=== PATIENT | female | born 1950 | race Caucasian/White ===

== ENCOUNTER 2018-11-05 10:41 | Outpatient (CLI) | payer MEDICARE ==
--- NOTE | 2018-11-05 13:09 | RAD ---
RIGHT HIP TWO VIEWS: HISTORY: A 68-year-old female with a history of right hip pain when lying on left side. Fall several months a go. FINDINGS: Degenerative and arthrosis changes of the right hip joint. No acute fracture or dislocation. IMPRESSION: Degenerative change without fracture or dislocation. POS: OFF
== END 2018-11-05 10:42 | disposition home or self-care (01) ==
LOC: BICRAD 10:41
PROVIDERS: ATTEND General Practice
DX: M25.551 Pain in right hip (principal); M16.11 Unilateral primary osteoarthritis, right hip

== ENCOUNTER 2019-07-07 09:33 | Outpatient (CLI) | payer MEDICARE ==
--- NOTE | 2019-07-07 10:30 | MMO ---
Bilateral MAMMO Bilat Screen [facility]. CLINICAL HISTORY: Patient is 68 years old and is seen for screening. The patient has no family history of breast cancer. The patient has no personal history of cancer. The patient has a history of left Excisional Biopsy in OVER 20 YRS AGO - benign and right Ultrasound Guided Core Biopsy in OVER 20 YRS AGO - benign. VIEWS: The views performed were: bilateral craniocaudal with tomosynthesis and bilateral mediolateral oblique with tomosynthesis. MAMMOGRAM FINDINGS: There are scattered fibroglandular densities. There are benign appearing calcifications seen in both breasts. There are no suspicious masses, suspicious calcifications, or new areas of architectural distortion. IMPRESSION: THERE IS NO MAMMOGRAPHIC EVIDENCE OF MALIGNANCY. A ROUTINE FOLLOW-UP MAMMOGRAM IN 1 YEAR IS RECOMMENDED. THE RESULTS OF THIS EXAM WERE SENT TO THE PATIENT. ACR BI-RADS Category 2 - Benign finding MAMMOGRAPHY NOTE: 1. A negative mammogram report should not delay a biopsy if a dominant of clinically suspicious mass is present. 2. Approximately 10% to 15% of breast cancers are not detected by mammography. 3. Adenosis and dense breasts may obscure an underlying neoplasm. Reported by: TRISTON WEINSTEIN MD Electonically Signed: [id number]
--- NOTE | 2019-07-07 10:50 | BD ---
EXAM: DEXA bone density examination HISTORY: 68-year-old postmenopausal female for screening COMPARISON: None FINDINGS: L1--bone mineral density 0.943 g/sq cm; T score -0.4 L2--bone mineral density 1.018 g/sq cm; T score -0.1 L3--bone mineral density 1.068 g/sq cm; T score -0.1 L4--bone mineral density 1.081 g/sq cm; T score 0.2 Total L1-L4--bone mineral density 1.031 g/sq cm; T score -0.1 Left femoral neck--bone mineral density0.838; T score -0.1 Total proximal left femur--bone mineral density 0.976; T score 0.3 IMPRESSION: Normal bone mineral density
== END 2019-07-07 09:34 | disposition home or self-care (01) ==
LOC: BICMAMMO 09:33
PROVIDERS: ATTEND Family Medicine
DX: Z12.31 Encounter for screening mammogram for malignant neoplasm of breast (principal); M81.6 Localized osteoporosis [Lequesne]; E13.9 Other specified diabetes mellitus without complications; Z91.89 Other specified personal risk factors, not elsewhere classified
CPT/HCPCS: 77063; 77067; 77080